=== PATIENT | male | born 1955 | race Caucasian/White ===

== ENCOUNTER 2018-09-26 13:24 | Inpatient (IN) ==
[2018-09-26] MEDS ORDERED: NS 1,000 ML IV ONE ×2 (15:24→19:08)
[2018-09-26] MEDS ORDERED: MORPHINE IV ONE (15:24)
[2018-09-26] MEDS ORDERED: BENADRYL IV ONE (15:28)
--- NOTE | 2018-09-26 16:16 | Diag Imaging Result Doc PS360 ---
EXAM: CHEST-2 VIEWS INDICATION: AMS / Cough TECHNIQUE: 2 views COMPARISON: 07/14/2016 FINDINGS: There is a catheter via granuloma at the right lung apex. The lungs are grossly clear. There is no discrete pleural fluid collection or pneumothorax. The cardiomediastinal silhouette and central vasculature are grossly unremarkable. IMPRESSION: No evidence of acute pathology by plain radiograph. Electronically signed by Elvin Li 09/26/2018 4:14 PM
--- NOTE | 2018-09-26 16:17 | Diag Imaging Result Doc PS360 ---
EXAM: KNEE 3 VIEWS RIGHT INDICATION: fall TECHNIQUE: 3 views COMPARISON: None. FINDINGS: There is no discrete fracture, dislocation, or significant intrinsic osseous lesion. There is mild medial compartment joint space narrowing. The surrounding soft tissues are essentially unremarkable. IMPRESSION: Mild medial compartment joint space narrowing. No evidence of acute osseous abnormality. Electronically signed by Elvin Li 09/26/2018 4:15 PM
--- NOTE | 2018-09-26 16:18 | Diag Imaging Result Doc PS360 ---
EXAM: RIBS ONLY RIGHT INDICATION: fall TECHNIQUE: 4 views COMPARISON: Chest radiograph dated 07/14/2016 FINDINGS: There is no discrete rib fracture or intrinsic osseous lesion. There has been prior right shoulder arthroplasty. Surrounding soft tissues are grossly unremarkable. IMPRESSION: No discrete rib fracture by plain radiograph. Electronically signed by Elvin Li 09/26/2018 4:16 PM
--- NOTE | 2018-09-26 16:19 | Diag Imaging Result Doc PS360 ---
EXAM: XRAY HIP UNILATERAL RT INDICATION: fall TECHNIQUE: 2 views COMPARISON: None. FINDINGS: There is no discrete fracture, dislocation, or significant intrinsic osseous lesion. The visualized joint spaces are essentially unremarkable. The surrounding soft tissues are essentially unremarkable. IMPRESSION: No evidence of acute osseous abnormality. Electronically signed by Elvin Li 09/26/2018 4:17 PM
[2018-09-26 17:35] LABS: BASO# 0.02 X1000 (0.0-0.2); BASO% 0.3 % (0.0-0.8); EOS# 0.28 X1000 (0.0-0.7); EOS% 4.2 % (0.0-10.0); HEMATOCRIT 38.9 % (42.0-52.0); HEMOGLOBIN 12.4 g/dL (14.0-18.0); IMM GRAN# 0.07 X1000 (0.0-0.04); IMM GRAN% 1.1 % (0.0-0.5); LYMPH# 0.99 X1000 (1.2-3.4); MCH 33.2 PG (27-31); MCHC 31.9 g/dL (33-37); MONO# 0.42 X1000 (0.11-0.59); MONO% 6.4 % (1.7-9.3); MPV 11.3 FL (7.4-10.4); NEUT# 4.81 X1000 (1.4-6.5); PLT 212 X1000 (130-400); RBC 3.74 XMIL (4.7-6.1); RDW 15.2 % (11.5-14.5); WBC 6.59 X1000 (4.8-10.8)
[2018-09-26 18:03] LABS: AGAP 9; ALB/GLOB RATIO 1.4; ALBUMIN 4.3 g/dL (3.5-5.0); ALKALINE PHOSPHATASE 59 U/L (32-122); BUN 23 mg/dL (8-22); CALCIUM 9.5 mg/dL (8.8-10.2); CHLORIDE 98 mmol/L (98-107); COSMO 274; CREATININE 0.9 mg/dL (0.7-1.2); ESTIMATED GFR > 60; GLUCOSE 105 mg/dL (70-104); GOT 54 U/L (10-34); GPT 22 U/L (10-44); POTASSIUM 4.4 mmol/L (3.5-5.1); SODIUM 135 mmol/L (136-145); TCO2 28 mmol/L (25-35); TOTAL BILIRUBIN 0.19 mg/dL (0.20-1.00); TOTAL PROTEIN 7.4 g/dL (6.3-8.3)
--- NOTE | 2018-09-26 18:04 | PROVIDER DOCUMENTATION ---
This chart was entered by Tere Simpson Scribe, acting as scribe for Leif Acevedo MD. HPI-Neurological Disorder - General Source: patient, family - History of Present Illness-Neuro Headache Location: reports: other Severity: reports: mild Onset/Duration: reports: 3 days ago Timing: reports: still present Context: reports: other (AMS) Character of Altered Mental Status: reports: disoriented, confused, trouble concentrating Any recent trauma/injury?: reports: none Character of Deficits: reports: decreased ability to walk, falling New weakness or altered sensation location:: reports: none Cognitive Baseline: alert, oriented x3 Gait Baseline: walks without assistance Associated Symptoms: reports: seizures (? per pt), trouble walking, other ( disoriented, stumbling, cough, visual hallucinations, bloody stools) Similar Symptoms Previously?: No Recently seen or treated by another doctor?: No <Leif Acevedo - Last Filed: 09/26/18 17:58> <Jensen Lazo - Last Filed: 09/26/18 20:32> - General Chief Complaint: Altered Mental Status Stated Complaint: AMS Time Seen by Provider: 09/26/18 13:44 Allergies/Adverse Reactions: Patient Allergies Allergy/AdvReac Type Severity Reaction Status Date / Time hydrocodone Allergy Unknown ITCHING Verified 09/26/18 14:35 Sulfa (Sulfonamide Allergy Unknown RASH Verified 09/26/18 14:35 Antibiotics) Home Medications: Home Medication List Medication Instructions Recorded Confirmed Last Taken Type Duloxetine [Cymbalta] 60 mg PO DAILY 02/07/18 02/07/18 09/26/18 History Gabapentin 1,200 mg PO TID 02/07/18 02/07/18 09/26/18 History Losartan [Cozaar] 50 mg PO BID 02/07/18 02/07/18 09/26/18 History Meloxicam 15 mg PO DAILY PRN PRN 02/07/18 02/07/18 09/26/18 History Nortriptyline [Pamelor] 10 mg PO HS 09/26/18 09/26/18 09/25/18 History - History of Present Illness-Neuro Nature of Presenting Problem: 63 y/o male presents to ED with AMS onset 3 days ago. Pt requests that his give the history. states he has been disoriented, had difficulty walking, stumbling, and fallen. She states he has had visual hallucinations, and described strange animals that he believed were in their house. Pt reports he has had a seizure, but states she did not witness any seizure activity. Pt reports multiple episodes of bloody stools and hx diverticulitis. Pt is alert and oriented. (Calvin,Tere F) 63 y/o male presents to ED with AMS onset 3 days ago. Pt requests that his give the history. states he has been disoriented, had difficulty walking, stumbling, and fallen. She states he has had visual hallucinations, and described strange animals that he believed were in their house. Pt reports he has had a seizure, but states she did not witness any seizure activity. Pt reports multiple episodes of bloody stools and hx diverticulitis. Pt is alert and oriented. (Leif Acevedo) Review of Systems - Adult - REVIEW OF SYSTEMS - ADULT Constitutional: reports: other (disoriented). denies: chills, fever Eyes: reports: no symptoms reported Ears, Nose, Mouth & Throat: reports: no symptoms reported Cardiovascular: denies: chest pain, palpitations Respiratory: reports: cough. denies: shortness of breath Gastrointestinal: reports: other (bloody stools). denies: abdominal pain, diarrhea, nausea, vomiting Genitourinary: reports: no symptoms reported Musculoskeletal: denies: back pain, joint pain Integumentary: reports: no symptoms reported Neurological: reports: seizure (? per pt), other (disoriented, difficulty walking, stumbling). denies: dizziness/vertigo Psychiatric: reports: other (visual hallucinations). denies: suicidal thoughts Endocrine: reports: no symptoms reported Hematologic/Lymphatic: reports: no symptoms reported Allergic/Immunologic: reports: no symptoms reported All Other Systems: Reviewed and Negative <Leif Acevedo - Last Filed: 09/26/18 17:58> Past History - Adult - PAST MEDICAL HISTORY-ADULT Review of Records: reports: Old Records Reviewed, Nursing Assessment Review, Medications Reviewed Major Childhood Illnesses: reports: denies history Cardiovascular: reports: denies history Respiratory: reports: denies history Gastrointestinal: reports: diverticulosis, GERD Obstetrical/Gynecological: reports: denies history Genitourinary: reports: denies history Musculoskeletal: reports: denies history, chronic pain (neck and back ) Neurological: reports: Seizures/Epilepsy Endocrine/Immune: reports: denies history Other Conditions: reports: denies history, cataract/glaucoma - PRIOR SURGERIES/PROCEDURES Surgical/Procedure History: reports: hernia repair, orthopedic (extremity) ( total knee and L arm; shoulder), joint replacement (shoulder; knee), back/neck ( neck), other (cataract removal, deviated septum) - IMMUNIZATION STATUS Childhood Immunizations: See Nurse Assessment Flu Vaccine: See Nurse Assessment - FAMILY HISTORY Family History: reviewed, not pertinent - SOCIAL HISTORY Smoking: non-smoker Substance Use: none/never Alcohol Use Frequency: never Living Situation: family <Leif Acevedo - Last Filed: 09/26/18 17:58> Physical Exam- Neurological - Physical Exam-Neuro Initial Vital Signs Reviewed: Yes General Appearance: appears well, alert, no apparent distress Eye Exam: bilateral eye: normal inspection, PERRL, EOMI HENMT: normocephalic/atraumatic, moist mucous membranes, normal ENT inspection Head Injury: no evidence of injury Neck: non-tender, full range of motion Respiratory: lungs clear, normal breath sounds, other (ecchymosis to R chest wall/rib cage; tender R chest wall/rib cage) Cardiovascular: normal peripheral pulses, regular rate, rhythm Abdominal Exam: normal bowel sounds, soft, guarding (involuntary; RLQ), tenderness (RLQ) Extremity: normal range of motion, normal gait, tenderness (R medial knee; R hip ) research quality assurance specialist Exam: normal hearing, PERRL, abnormal speech (slurred) Coordination/Gait: normal finger to nose, abnormal gait Motor/Sensory: no motor deficit, no sensory deficit, no pronator drift Neurologic: research quality assurance specialist II-XII nml as tested, grossly normal, no motor/sensory deficits Integumentary: normal color, warm/dry Psych/Mental Status: normal mood/affect, normal thought content, normal thought process <Leif Acevedo - Last Filed: 09/26/18 17:58> Progress - PLAN OF CARE/RESULTS Result Diagrams: 09/26/18 14:10 - EKG 1 Time of EKG reading by physician:: 15:35 EKG Read and Signed by:: Leif Acevedo EKG Interpretation (*Must complete 3 of following elements*): Normal Rate: 93 Rhythm: NSR [place]: normal QRS: normal CT Interval: normal ST Wave: normal - XRAY 1 XRAY Study: Ribs Impression: Normal (FINDINGS: There is no discrete rib fracture or intrinsic osseous lesion. There has been prior right shoulder arthroplasty. Surrounding soft tissues are grossly unremarkable. IMPRESSION: No discrete rib fracture by plain radiograph. Electronically signed by Elvin Li 09/26/2018 4:16 PM) 2 XRAY: Right XRAY Study: Knee Impression: Abnormal (FINDINGS: There is no discrete fracture, dislocation, or significant intrinsic osseous lesion. There is mild medial compartment joint space narrowing. The surrounding soft tissues are essentially unremarkable. IMPRESSION: Mild medial compartment joint space narrowing. No evidence of acute osseous abnormality. Electronically signed by Elvin Li 09/26/2018 4: 15 PM) 3 XRAY: Right XRAY Study: Hip Impression: Normal (FINDINGS: There is no discrete fracture, dislocation, or significant intrinsic osseous lesion. The visualized joint spaces are essentially unremarkable. The surrounding soft tissues are essentially unremarkable. IMPRESSION: No evidence of acute osseous abnormality. Electronically signed by Elvin Li 09/26/2018 4:17 PM) 4 XRAY Study: Chest Impression: Normal (FINDINGS: There is a catheter via granuloma at the right lung apex. The lungs are grossly clear. There is no discrete pleural fluid collection or pneumothorax. The cardiomediastinal silhouette and central vasculature are grossly unremarkable. IMPRESSION: No evidence of acute pathology by plain radiograph. Electronically signed by Elvin Li 2018 4:14 PM) - CHANGE OF SHIFT REPORT (ED Provider) Report Given and Care Transferred to:: marbella moore Time of Transfer: 17:59 Items Pending: Labs <Leif Acevedo - Last Filed: 09/26/18 17:58> - PLAN OF CARE/RESULTS Result Diagrams: 09/26/18 14:10 09/26/18 14:10 - REASSESSMENT Reassessment #1 Time Reassessed: 18:18 Status: unchanged (Patient reprot FBPR for 1 week. get dizzy and fell down. report confusion at home but here he is A and Ox3. RLQ tenderness, no rebound or Guarding. will call GI.) - CONSULTS/PCP/HOSPITALIST Notification #1 *Consult/PCP/Hospitalist*: Dr. Evangelista Time Discussed: 19:05 Consult Disposition: Admit (Type and screen, fluid , NPO and admit.) #2 Consult: Dr. Alex Haro Consult Disposition: Admit (Accepted. Hx , PE and Dx , GI recommendation discussed.) <Al-Jensen Moore - Last Filed: 09/26/18 20:32> - PLAN OF CARE/RESULTS Progress/Plan/Lab Results: Vital Signs - 8 hr 09/26/18 13:45 Temperature 98.2 F Pulse Rate 96 H Respiratory Rate 20 Blood Pressure 135/101 O2 Sat by Pulse Oximetry 96 Laboratory Results - last 24 hr 09/26/18 09/26/18 09/26/18 14:10 14:10 17:25 WBC 6.59 RBC 3.74 L Hgb 12.4 L Hct 38.9 L MCV 104.0 H MCH 33.2 H MCHC 31.9 L RDW Std Deviation 15.2 H Plt Count 212 MPV 11.3 H Immature Gran % (Auto) 1.1 H Neut % (Auto) 73.0 Lymph % (Auto) 15.0 L [place] % (Auto) 6.4 Eos % (Auto) 4.2 Baso % (Auto) 0.3 Immature Gran # (Auto) 0.07 H Neut # (Auto) 4.81 Lymph # (Auto) 0.99 L [place] # (Auto) 0.42 Eos # (Auto) 0.28 Baso # (Auto) 0.02 Sodium 135 L Potassium 4.4 Chloride 98 Carbon Dioxide 28 Anion Gap 9 BUN 23 H Creatinine 0.9 Estimated GFR/1.73 m2 > 60 BUN/Creatinine Ratio 26 Glucose 105 H POC Glucose 93 Calculated Osmolality 274 Calcium 9.5 Total Bilirubin 0.19 L AST 54 H ALT 22 Alkaline Phosphatase 59 Total Protein 7.4 Albumin 4.3 Globulin 3.1 Albumin/Globulin Ratio 1.4 Urine Source Urine Color Urine Turbidity Urine pH Ur Specific [place] Urine Protein Ur Glucose (Stick) Ur Ketones (Stick) Urine Blood Urine Nitrite Urine Bilirubin Urobilinogen Dipstick Urine Leukocytes Urine WBC (Auto) Urine RBC (Auto) U Epithel Cells (Auto) Urine Bacteria (Auto) 09/26/18 18:50 WBC RBC Hgb Hct MCV MCH MCHC RDW Std Deviation Plt Count MPV Immature Gran % (Auto) Neut % (Auto) Lymph % (Auto) [place] % (Auto) Eos % (Auto) Baso % (Auto) Immature Gran # (Auto) Neut # (Auto) Lymph # (Auto) [place] # (Auto) Eos # (Auto) Baso # (Auto) Sodium Potassium Chloride Carbon Dioxide Anion Gap BUN Creatinine Estimated GFR/1.73 m2 BUN/Creatinine Ratio Glucose POC Glucose Calculated Osmolality Calcium Total Bilirubin AST ALT Alkaline Phosphatase Total Protein Albumin Globulin Albumin/Globulin Ratio Urine Source CLEAN CATCH Urine Color STRAW Urine Turbidity CLEAR Urine pH 7.5 Ur Specific [place] 1.000 Urine Protein NEGATIVE Ur Glucose (Stick) NEGATIVE Ur Ketones (Stick) NEGATIVE Urine Blood NEGATIVE Urine Nitrite NEGATIVE Urine Bilirubin NEGATIVE Urobilinogen Dipstick NORMAL Urine Leukocytes NEGATIVE Urine WBC (Auto) <10 Urine RBC (Auto) <10 U Epithel Cells (Auto) <10 Urine Bacteria (Auto) NEGATIVE Orders Category Date Time Status Saline Loc NOW Care 09/26/18 15:24 Active CHEST-2 VIEWS [RAD] Stat Exams 09/26/18 15:[address] ABD/PELVIS W/IV CONT ONLY [CT] Stat Exams 09/26/18 15:[address] HEAD W/O CONTRAST [CT] Stat Exams 09/26/18 15:24 Completed KNEE 3 VIEWS RIGHT [RAD] Stat Exams 09/26/18 15:24 Completed RIBS ONLY RIGHT [RAD] Stat Exams 09/26/18 15:24 Completed XRAY HIP UNILATERAL RT [RAD] Stat Exams 09/26/18 15:24 Completed CBC WITH ELECTRONIC DIFF [HEME] Stat Lab 09/26/18 14:10 Completed COMPREHENSIVE METABOLIC PANEL [CHEM] Stat Lab 09/26/18 14:10 Completed OCCULT BLOOD DIAGNOSTIC [STOOL] Stat Lab 09/26/18 15:24 Uncollected TYPE & SCREEN [BBK] Stat Lab 09/26/18 19:08 Uncollected UA [URINALYSIS W/POSS RFLX CULT] [URINALYSIS] Stat Lab 09/26/18 18:50 Completed 0.9% Sodium Chloride Inj [Ns] 1,000 ml Med 09/26/18 19:15 Active IV 300 mls/hr 0.9% Sodium Chloride Inj [Ns] 1,000 ml Med 09/26/18 15:24 Discontinued IV 999 mls/hr 0.9% Sodium Chloride Inj [Ns] 1,000 ml Med 09/26/18 19:08 Discontinued IV 999 mls/hr Diphenhydramine [Benadryl] Med 09/26/18 15:28 Discontinued 25 mg IV NOW ONE Morphine Med 09/26/18 15:24 Discontinued 4 mg IV NOW ONE Pantoprazole [Protonix] Med 09/26/18 19:08 Discontinued 40 mg IV NOW ONE Pantoprazole [Protonix] Med 09/26/18 19:30 Discontinued 40 mg IV NOW ONE Sodium Chloride 0.9% Med 09/26/18 19:08 Discontinued 10 ml INJ NOW ONE Sodium Chloride 0.9% Med 09/26/18 19:30 Discontinued 10 ml INJ NOW ONE EKG [EKG] Stat Ther 09/26/18 15:24 Ordered Departure <Leif Acevedo - Last Filed: 09/26/18 17:58> - Departure Date of Disposition Decision: 09/26/18 Time of Disposition Decision: 19:28 Certified Medical Emergency: Emergent - Critical Care Note This patient required my direct & personal management of CC.: No <Jensen Lazo - Last Filed: 09/26/18 20:32> - Departure DIAGNOSIS: Bright red blood per rectum, Confusion Disposition: ADMITTED INPATIENT 09 Condition: Serious Referrals and Follow-Ups: Donald Wiggins MD [Primary Care Provider] - Attestation - Physician/ ROSSY Attestation Patient care was provided by Advanced Practice Provider:: No The physician spent face to face time with patient:: Yes Advanced Practice Provider documentation review:: Supervising physician onsite and consulted in the evaluation and care of this patient. The physician did have a face to face encounter with the patient. <Leif Acevedo - Last Filed: 09/26/18 17:58> - NIH Stroke Scale NIH Type: Initial Evaluation Level of Consciousness: 0-Alert LOC Questions (ask month and age): 0-Answers Both Correctly LOC Commands (ask to open & close eyes;make a fist, let go): 0-Obeys Both Correctly Best Gaze (horizontal eye movement): 0-Normal Visual (use finger movement, counting or visual threat): 0-No Visual Loss Facial Palsy (show teeth or raise eyebrows & close eyes tght: 0-Symmetrical Movement Motor Function-left arm: 0-Normal Motor Function-right arm: 0-Normal Motor Function-left le-Normal Motor Function-right le-Normal Limb Ataxia(efyilr-xown-ryccdg, or heel to patel): 0-No Ataxia Sensory(pin prick to face,arms,trunk,legs-compare side/side): 0-No Ataxia Best Language(name item/read sentence.Ex-Down to Earth): 0-No Aphasia Dysarthria(Pt read words or say words Ex.Mama,Tip-Top,Thanks: 1-Mild-Mod Slurring Words Extinction and Inattention: 0-Normal NIH Total Score: 1 Modified [place] Score Criteria: 1-no significant disability despite symptoms <Leif Acevedo - Last Filed: 09/26/18 17:58> Stroke tPA Guidelines - Inclusion Criteria for IV tPA 18 years old or older: Yes Ischemic stroke with measurable deficit: No Onset <3 hours ago *OR* 3-4.5 hours ago: No - Exclusion Criteria for IV tPA Evidence of intracranial hemorrhage on CT: No Presentation suggest SAH: No CT reveals defined area of hypodensity: No Evidence of AVM, neoplasm, aneurysm: No Seizure at stroke onset: No Active internal bleeding or acute trauma: No Platelet Count Less Than 100,000: No Heparin Within Last 48 HRS (PTT >Lab normal limits): No INR > 1.7 (warfarin use): No Use IIB/IIIA inhibitors within 24 hours: No Serious Head Trauma Within Last 3 Months: No Arterial Puncture Within Last 7 Days: No Lumbar Puncture Within Last 7 Days: No Repeated systolic Blood Pressure >185 or Diastolic >110: No - Additional Exclusion Criteria for IV tPA Currently on Coumadin: No Patient older than 80: No Prior stroke and diabetes: No Baseline NIHSS score > 25: No - Relative Contraindications to IV tPA CT reveals extensive area of infarct (>1/3 MCA territory): No Minor or rapidly improving stroke symptoms: Yes Major Surgery or Serious Trauma In Previous 14 Days: No AMI within 3 months: No Gastrointestinal or Urinary Tract hemorrhage in Past 21 Days: No Post - AMI pericarditis: No Blood Glucose Less Than 50 mg/dl or Greater Than 400 mg/dl: No - Consultation Reason not a candidate:: NIH score of 1; symptom onset 3 days ago. <Leif Acevedo - Last Filed: 09/26/18 17:58> This chart was documented by the indicated scribe, (Tere Simpson, Myraibyogesh) and accurately reflects the services I performed and decisions made by , Leif Acevedo MD, as attested by the provider's signature.
--- NOTE | 2018-09-26 18:50 | Diag Imaging Result Doc PS360 ---
EXAM: CT ABD/PELVIS W/IV CONT ONLY INDICATION: RLQ abdominal pain, Hx of diverticulitis blood sto TECHNIQUE: This exam was performed using automated exposure control, adjustment of mA or kV according to patient size, and/or use of iterative reconstruction technique. COMPARISON: None. FINDINGS: There is a 7 mm noncalcified nodule at the left lung base, nonspecific but statistically most likely a granuloma. There are multiple calcified granulomata in the spleen. There is a miniscule hypodense focus in the inferior right hepatic lobe that probably represents a tiny cyst. The liver is unremarkable, otherwise. The gallbladder, pancreas, and adrenal glands are unremarkable. There are a few tiny renal cysts bilaterally. There is slightly heterogeneous enhancement at the superior aspects of both kidneys, mainly on the left. It is nonspecific. It can be associated with pyelonephritis. Please correlate clinically. No discrete renal mass is identified. The urinary bladder is unremarkable. There is severe diverticulosis coli that predominantly involves the sigmoid colon and descending colon. There is no evidence of diverticulitis. The appendix is normal. There is a moderate-sized hiatal hernia. The remainder of the GI tract is essentially unremarkable. There is no free abdominal gas or free fluid identified. IMPRESSION: 1.Subtle heterogeneous enhancement at the superior aspects of both kidneys. Although nonspecific, this can be associated with mild pyelonephritis. Please correlate clinically. 2.Advanced diverticulosis coli with no evidence of diverticulitis. 3.Other external/nonacute findings detailed above. Electronically signed by Elvin Li 09/26/2018 6:47 PM
--- NOTE | 2018-09-26 18:51 | Diag Imaging Result Doc PS360 ---
EXAM: CT HEAD W/O CONTRAST INDICATION: ams TECHNIQUE: This exam was performed using automated exposure control, adjustment of mA or kV according to patient size, and/or use of iterative reconstruction technique. COMPARISON: 09/13/2015 FINDINGS: There is no definite acute infarct given the limited sensitivity of CT versus MRI. There is no discrete intracranial mass, mass effect, or intracranial hemorrhage. There is mild ethmoid and right maxillary sinus mucosal disease. Surrounding soft tissues and bony structures are essentially unremarkable, otherwise. IMPRESSION: No evidence of acute intracranial pathology. Electronically signed by Elvin Li 09/26/2018 6:48 PM
[2018-09-26] MEDS ORDERED: PROTONIX IV ONE ×2 (19:08→19:30)
[2018-09-26] MEDS ORDERED: SODIUM CHLORIDE 0.9% INJ ONE ×2 (19:08→19:30)
[2018-09-26] MEDS ORDERED: NS 1,000 ML IV SCH (19:15)
[2018-09-26 19:17] LABS: URINE SOURCE CLEAN CATCH
[2018-09-26 19:28] LABS: BILIRUBIN URINE NEGATIVE (NEGATIVE); BLOOD URINE NEGATIVE (NEGATIVE); COLOR STRAW; GLUCOSE URINE NEGATIVE (NEGATIVE); KETONE URINE NEGATIVE (NEGATIVE); LEUKOCYTES URINE NEGATIVE (NEGATIVE); NITRITE URINE NEGATIVE (NEGATIVE); PH URINE 7.5; PROTEIN URINE NEGATIVE (NEGATIVE); TURBIDITY URINE CLEAR (CLEAR); UROBILINOGEN URINE NORMAL (NORMAL)
[2018-09-26 19:29] LABS: UR EPITHELIAL CELLS <10 /HPF (<10); URINE BACTERIA NEGATIVE /HPF; URINE RBC <10 /HPF (<10); URINE WBC <10 /HPF (<10)
[2018-09-26] MEDS: MORPHINE IV PRN (23:40)
[2018-09-26] MEDS: ZOFRAN IV PRN (23:41)
--- NOTE | 2018-09-27 00:24 | HISTORY AND PHYSICAL ---
CHIEF COMPLAINT: Falls. HISTORY OF PRESENT ILLNESS: This is a 63-year-old male who sees Dr. Chip Wiggins as an outpatient. Apparently he had had some stumbling and falls over the past couple of days. The ER stated that he had had visual hallucinations, seeing strange animals in the house. The patient did not make any mention of this to me. He has a history of hypertension, epilepsy and chronic pain as well as diverticulosis and GERD. He reportedly had bleeding in his stool that was bright red and which started I guess Thursday of last week. He stated that he had been on a diet with his , eating a lot of fresh, raw vegetables. He felt as if it had to do with his history of diverticulosis. He said there was a small amount of bright red blood in each one of the stools that stopped around 2 days ago. The fall happened on Thursday. He stated that he did not lose consciousness. He did not hit his head. He does have ecchymosis with small abrasions to his right ribs. He has complaint of right rib pain, right hip pain and low back pain. He states that he has a history of sciatica and has taken multiple epidural blocks. At this time the patient is alert and oriented x 3. His main complaint is pain from the falls. He denies having any seizure activity. GI was consulted by the ER physician. They stated they would see him inpatient. He will be admitted and held NPO for possible colonoscopy tomorrow. PAST MEDICAL HISTORY: See HPI. PREVIOUS SURGICAL HISTORY: Hernia repair, total knee and left shoulder repair, cataract removal, deviated septum surgery, vagal nerve stimulator. FAMILY HISTORY: Positive for hypertension and coronary artery disease in both parents. SOCIAL HISTORY: He is a nonsmoker. He uses chewing tobacco. He was an alcoholic but has been sober for almost 15 years. He lives with his . No illicit drug use. ALLERGIES: [place] and sulfa antibiotics. HOME MEDICATIONS: A list of home medications has not been reconciled. Order was placed for nursing to reconcile home medications in the computer. These can be restarted when appropriate by his primary care provider, Dr. Chip Wiggins. REVIEW OF SYSTEMS: A 14-point review of systems was conducted with the patient. Pertinent positives listed above in the HPI. All other systems reviewed and negative. PHYSICAL EXAMINATION: VITAL SIGNS: Temperature 98.2 degrees, pulse 96, respirations 20, blood pressure 135/80, oxygen saturation 96% on room air. GENERAL: A pleasant, 63-year-old male lying on the ER stretcher. Answers all questions appropriately. He is alert and oriented x 3, in no acute distress. HEENT: Head is atraumatic, normocephalic. Pupils equal, round and reactive to light. Extraocular eye movements intact. Sclerae are nonicteric. Conjunctivae are pink. Oral mucosa is moist. NECK: Supple. No JVD, no thyromegaly. Trachea is midline. No cervical lymphadenopathy. CARDIAC: S1, S2 appreciated. No murmurs, rubs or gallops. LUNGS: Clear to auscultation bilaterally. No rales, rhonchi or wheezes. Symmetrical rise and fall respirations. ABDOMEN: Soft, nontender, nondistended. Bowel sounds present in all 4 quadrants. Normoactive. No pulsatile mass. No organomegaly. EXTREMITIES: No clubbing, cyanosis or edema. 2+ pedal pulses bilaterally. Tenderness to right hip. SKIN: Warm, dry. Ecchymosis noted to right rib cage as well as a small area of ecchymosis to right hip. NEUROLOGICAL: Alert and oriented x 3. Cranial nerves II-XII appear to be grossly intact. DIAGNOSTIC DATA: Multiple x-rays of the ribs, right knee, right hip and chest were all within normal limits. EKG showed normal sinus rhythm with a rate of 93. CT of the abdomen and pelvis showed advanced diverticulosis with no evidence of diverticulitis. LABORATORY DATA: WBC 6.59, hemoglobin 12.4, hematocrit 38.9, platelet count 212. Sodium 135, potassium 4.4, chloride 98, carbon dioxide 28, BUN 23, creatinine 0.9, glucose 105. Urine unremarkable. ASSESSMENT AND PLAN: 1. Lower GI bleed. This is likely a diverticular bleed. Consult Dr. Evangelista. Give Protonix 40 mg IV q. 12 hours. NPO after midnight. Normal saline at 100 mL an hour. 2. Acute blood loss anemia secondary to #1. Trend hemoglobin and hematocrit q. 6 hours. Type and screen has been obtained. 3. Fluid volume depletion. Two boluses were given in the Emergency Room. We will continue normal saline at 100 mL an hour. 4. Frequent falls. The patient has complaint of pain. However, he does have chronic pain. We will have morphine 2 mg IV q. 3 hours. Defer additional treatment to Dr. Chip Wiggins, his primary care provider. 5. Epilepsy. We will continue home medications when they have been reconciled. Order was placed for nursing to reconcile home medications. Defer further treatment to primary team. Further recommendations depending on patient's clinical course. Dictated by SOLITARIO Montanez for Alex Haro MD I have performed a face to face diagnostic evaluation. Labs and Xrays reviewed. Exam- chest -clear A/P- GI Bleed- Admit, NPO, GI consult. Dr. Haro cc: SOLITARIO Montanez MD P. Jagan Reddy, MD [facility]
[2018-09-27] MEDS: NS 1,000 ML IV SCH ×3 (00:45→20:37)
[2018-09-27 01:03] LABS: BASO# 0.02 X1000 (0.0-0.2); BASO% 0.3 % (0.0-0.8); EOS# 0.32 X1000 (0.0-0.7); EOS% 5.2 % (0.0-10.0); HEMATOCRIT 34.6 % (42.0-52.0); HEMOGLOBIN 10.8 g/dL (14.0-18.0); IMM GRAN# 0.06 X1000 (0.0-0.04); LYMPH# 1.33 X1000 (1.2-3.4); LYMPH% 21.7 % (20.5-51.1); MCH 32.6 PG (27-31); MCHC 31.2 g/dL (33-37); MCV 104.5 FL (81-99); MONO# 0.37 X1000 (0.11-0.59); MPV 10.2 FL (7.4-10.4); NEUT# 4.03 X1000 (1.4-6.5); NEUT% 65.8 % (42.2-75.2); PLT 180 X1000 (130-400); RBC 3.31 XMIL (4.7-6.1); RDW 15.1 % (11.5-14.5); WBC 6.13 X1000 (4.8-10.8)
[2018-09-27] MEDS: MORPHINE IV PRN ×4 (06:50→23:50)
[2018-09-27] MEDS: ZOFRAN IV PRN (06:50)
[2018-09-27 06:52] LABS: BASO# 0.02 X1000 (0.0-0.2); BASO% 0.3 % (0.0-0.8); EOS# 0.35 X1000 (0.0-0.7); HEMATOCRIT 35.5 % (42.0-52.0); HEMOGLOBIN 11.1 g/dL (14.0-18.0); IMM GRAN# 0.06 X1000 (0.0-0.04); LYMPH% 22.2 % (20.5-51.1); MCH 32.7 PG (27-31); MCHC 31.3 g/dL (33-37); MCV 104.7 FL (81-99); MONO# 0.46 X1000 (0.11-0.59); MONO% 7.8 % (1.7-9.3); MPV 10.7 FL (7.4-10.4); NEUT# 3.67 X1000 (1.4-6.5); NEUT% 62.7 % (42.2-75.2); PLT 184 X1000 (130-400); RBC 3.39 XMIL (4.7-6.1); WBC 5.86 X1000 (4.8-10.8)
[2018-09-27 06:56] LABS: INR 0.94; PROTIME 13.3 Seconds (11.0-16.0)
--- NOTE | 2018-09-27 07:17 | EKG Report ---
Test Performed on : 09/26/2018 2:37:43 PM Test Reason : ams Blood Pressure : / mmHG Vent. Rate : 093 BPM Atrial Rate : 093 BPM P-R Int : 156 ms QRS Dur : 082 ms QT Int : 338 ms P-R-T Axes : 059 -07 026 degrees QTc Int : 420 ms Normal sinus rhythm. Normal ECG When compared with ECG of 07-FEB-2018 19:35, No significant change was found Unconfirmed Result
[2018-09-27 07:44] LABS: AGAP 13; BUN 13 mg/dL (8-22); CALCIUM 8.6 mg/dL (8.8-10.2); CHLORIDE 104 mmol/L (98-107); COSMO 282; CREATININE 0.7 mg/dL (0.7-1.2); ESTIMATED GFR > 60; GLUCOSE 82 mg/dL (70-104); POTASSIUM 4.3 mmol/L (3.5-5.1); SODIUM 142 mmol/L (136-145); TCO2 25 mmol/L (25-35)
[2018-09-27] MEDS: SODIUM CHLORIDE 0.9% INJ SCH (08:17)
[2018-09-27] MEDS: PROTONIX IV SCH ×2 (08:17→20:37)
--- NOTE | 2018-09-27 10:31 | GASTROENTEROLOGY CONSULTATION ---
DATE: 09/27/2018 REQUESTING PHYSICIAN: Dr. Wiggins. PRIMARY CARE PHYSICIAN: Dr. Wiggins. REASON FOR CONSULTATION: Rectal bleeding. HISTORY OF PRESENT ILLNESS: Mr. Dial is a 63-year-old male who was admitted on 09/26/2018 for recurrent falls over the last couple of days. According to the patient, he has been experiencing some visual hallucinations. The patient has a history of epilepsy, chronic pain, hypertension, diverticulosis, and GERD. According to the patient, he started noticing bright red blood in the stools one week ago. His last colonoscopy was done more than 10 years ago. He does not recall the results of the procedure. He describes the stool as bright red. He was noted to be mildly anemic on lab work. Since being in the hospital, he has not had any documented blood in the stools. Gastroenterology is consulted for further management. PAST MEDICAL HISTORY: Reflux disease, diverticulosis, chronic pain, epilepsy, hypertension, sciatica. PAST SURGICAL HISTORY: Hernia repair, total knee replacement, left shoulder repair, cataract removal, deviated septal surgery, vagal nerve stimulator. FAMILY HISTORY: Significant for hypertension, coronary artery disease. SOCIAL HISTORY: He is a nonsmoker. He chews tobacco. He was an alcoholic, but has been sober for the last 15 years. He lives with his . No history of illicit drug abuse. ALLERGIES: [place] and sulfa antibiotics. MEDICATIONS IN HOSPITAL: Include: 1. Morphine. 2. Normal saline. 3. Zofran. 4. Protonix. He is currently n.p.o. REVIEW OF SYSTEMS: Denies any current fevers, rigors or chills, chest pain, or shortness of breath. He does complain of feeling tired and also complains of having recurrent falls in the past few days. He has been having intermittent blood in the stools over the last 1 week. He has history of reflux and diverticulosis. Denies any vomiting blood. He does have a history of chronic pain and arthritis. He denies any neurologic complaints. He does take NSAIDs in the form of Mobic at home. PHYSICAL EXAMINATION: Vital Signs: Temperature of 97.9 degrees, pulse rate of 95, respiratory rate 18, blood pressure 144/99, saturating 92% on room air. Body weight of 204 pounds and 14.4 ounces. BMI of 28 kg/m2. General: Moderately nourished, lying in bed in no acute distress. HEENT: Mild pallor. No icterus. Pupils equal, reactive to light. Neck: Supple. Abdomen: Soft, nontender, nondistended. No guarding or rebound. Extremities: No cyanosis, clubbing. Neurologic: Alert, awake, oriented x3. LABORATORY DATA: Hemoglobin and hematocrit 11.1 and 35.5, white count of 5.86, platelet count of 184,000. INR 0.94, PTT of 13.3, PTT of 35. Sodium 140, potassium 4.2, chloride 104, bicarb 24, anion gap 13, BUN of 15, creatinine 0.7, glucose of 82, calcium is 8.6. Total bilirubin is 0.19, AST 54, ALT 22, alkaline phosphatase 59, total protein is 7.4, albumin of 4.3. TSH 2.56. IMAGING: He had abdominopelvic CT scan done, which showed: 1. Subtle heterogeneous enhancement at the superior aspect of both kidneys, nonspecific. 2. Advanced diverticulosis coli with no evidence of diverticulitis. 3. Moderate-sized hiatal hernia. IMPRESSION AND PLAN: 1. Gastrointestinal bleed. Unclear if it is diverticular as the patient has severe diverticulosis on CT scan. 2. Diverticulosis coli. 3. Hiatal hernia. 4. Reflux. 5. History of use of nonsteroidal anti-inflammatory drugs. RECOMMENDATIONS: Will keep the patient on Protonix twice daily. We will start on clear liquid diet. Will schedule him for EGD and colonoscopy tomorrow by Dr. Banks. The risks, benefits, indications, and alternatives were discussed with the patient, and all questions were answered. If the patient has decreasing hematocrit, he may need blood transfusion. Would recommend the patient to quit chewing tobacco and avoid any NSAIDs. He needs to follow gastroesophageal reflux lifestyle changes. Further recommendations to follow pending hospital course. The above plans were discussed with the patient, and all questions were answered. Please call if any questions. cc: MD Ej Hilliard MD
[2018-09-27 11:59] LABS: BASO# 0.03 X1000 (0.0-0.2); BASO% 0.5 % (0.0-0.8); EOS# 0.21 X1000 (0.0-0.7); EOS% 3.2 % (0.0-10.0); HEMATOCRIT 35.7 % (42.0-52.0); HEMOGLOBIN 11.3 g/dL (14.0-18.0); IMM GRAN# 0.07 X1000 (0.0-0.04); IMM GRAN% 1.1 % (0.0-0.5); LYMPH# 0.88 X1000 (1.2-3.4); LYMPH% 13.4 % (20.5-51.1); MCH 32.9 PG (27-31); MCHC 31.7 g/dL (33-37); MCV 104.1 FL (81-99); MONO# 0.36 X1000 (0.11-0.59); MONO% 5.5 % (1.7-9.3); MPV 10.5 FL (7.4-10.4); NEUT# 5.01 X1000 (1.4-6.5); NEUT% 76.3 % (42.2-75.2); PLT 175 X1000 (130-400); RBC 3.43 XMIL (4.7-6.1); RDW 14.8 % (11.5-14.5); WBC 6.56 X1000 (4.8-10.8)
[2018-09-27] MEDS ORDERED: GOLYTELY PO ONE (14:00)
[2018-09-27 17:10] LABS: BASO# 0.03 X1000 (0.0-0.2); BASO% 0.4 % (0.0-0.8); EOS# 0.09 X1000 (0.0-0.7); EOS% 1.1 % (0.0-10.0); HEMATOCRIT 37.9 % (42.0-52.0); HEMOGLOBIN 12.1 g/dL (14.0-18.0); IMM GRAN# 0.15 X1000 (0.0-0.04); IMM GRAN% 1.8 % (0.0-0.5); LYMPH# 1.07 X1000 (1.2-3.4); LYMPH% 13.1 % (20.5-51.1); MCH 32.9 PG (27-31); MCHC 31.9 g/dL (33-37); MONO# 0.43 X1000 (0.11-0.59); MONO% 5.3 % (1.7-9.3); MPV 10.5 FL (7.4-10.4); NEUT# 6.37 X1000 (1.4-6.5); NEUT% 78.3 % (42.2-75.2); PLT 198 X1000 (130-400); RBC 3.68 XMIL (4.7-6.1); RDW 14.6 % (11.5-14.5); WBC 8.14 X1000 (4.8-10.8)
--- NOTE | 2018-09-27 18:57 | PROGRESS NOTE ---
DATE: 09/27/2018 63-year-old white gentleman admitted to the hospital with altered mental status, falling, bleeding per rectum. Appreciate Dr. Evangelista's consult. PAST MEDICAL HISTORY: Reviewed. PAST SURGICAL HISTORY: Reviewed. MEDICINES: Reviewed. ALLERGIES: Hydrocodone and sulfa. EXAMINATION: Temperature 97 degrees, pulse is 92, blood pressure slightly high .HEENT: Within normal limits. Neck: Supple. Chest: Bilateral air entry. Heart: Sounds are regular. Bruising noted on the right side of the chest. Belly: Soft, nontender. Rectal: Did not do. Extremities: No peripheral edema on thrombotic stockings and left wrist is deformed from the previous injuries. LABS: CBC. White cell count 8.1, hematocrit 37.9, platelets 198,000. PT/INR is normal. PTT 35. SMA 7 is normal. TSH 2.56. Urinalysis is clear. EKG normal sinus, nothing acute. Right rib x- rays no acute bony injury. X-ray of right knee. No evidence of osseous abnormality noted. X-ray of right hip. No acute bony injury identified. CT head no evidence of acute intracranial pathology. Chest x-ray negative except calcified granuloma in the right lung apex. CT scan of the abdomen and pelvis diverticulosis. ASSESSMENT AND PLAN: 1. Altered mental status due to metabolic encephalopathy. Will get the urine toxic screen. 2. Recurrent falls. No acute bony injury noted on the right side of the chest. 3. Lower gastrointestinal bleeding. Set up a colonoscopy by Dr. Banks. Patient has a chronic pain taking duloxetine and gabapentin. 4. Hypertension on losartan on hold and depression on nortriptyline. All the workup was essentially unremarkable. Appreciated GI consult. Will follow up. LEVEL OF DOCUMENTATION: 35 minutes. cc: Ej Wiggins MD
[2018-09-28 00:24] LABS: UR AMPHETAMINES QUAL NONE DETECTED (NONE DETECT); UR BARBITUATES QUAL NONE DETECTED (NONE DETECT); UR BENZODIAZEPIN QUAL NONE DETECTED (NONE DETECT); UR CANNABINOIDS QUAL NONE DETECTED (NONE DETECT); UR COCAINE QUAL NONE DETECTED (NONE DETECT); UR METHADONE QUAL NONE DETECTED (NONE DETECT); UR OPIATES QUAL PRESUMPTIVE POSITIVE (NONE DETECT); UR OXYCODONE QUAL NONE DETECTED (NONE DETECT); UR PCP QUAL NONE DETECTED (NONE DETECT)
[2018-09-28] MEDS: MORPHINE IV PRN ×3 (03:16→21:53)
[2018-09-28] MEDS: SODIUM CHLORIDE 0.9% INJ SCH (08:23)
[2018-09-28] MEDS: PROTONIX IV SCH ×2 (08:23→21:51)
[2018-09-28] MEDS ORDERED: PNEUMOVAX 23 IM ONE (09:00)
[2018-09-28] MEDS: NS 1,000 ML IV SCH ×2 (10:33→18:39)
[2018-09-28] MEDS ORDERED: DIPRIVAN 1% ONE ×2 (11:58→12:22)
[2018-09-28] MEDS ORDERED: XYLOCAINE-MPF 2% ONE (11:58)
[2018-09-28] MEDS ORDERED: FENTANYL ONE (11:59)
--- NOTE | 2018-09-28 12:55 | GASTROENTEROLOGY PROGRESS NOTE ---
DATE: 09/28/2018 SUBJECTIVE: No acute overnight events. Afebrile. The patient denies nausea, vomiting, chest pain, shortness of breath, abdominal pain, rectal bleeding. Reports having a clear stool. Plan for diagnostic EGD and colonoscopy today. Vital signs are stable. Labs: Hemoglobin at 12.1 from 10.8 yesterday. Platelets of 198,000. INR of 0.94. Chemistries from yesterday are unrevealing. ASSESSMENT AND PLAN: Mr. Ren Dial is a 63-year-old gentleman, who presented with altered mental status and fall, as well as hematochezia. His mental status has improved significantly. The patient was prepped for diagnostic EGD and colonoscopy today. Further recommendations postprocedure. cc: Ej Wiggins MD
--- NOTE | 2018-09-28 13:01 | OPERATIVE NOTE ---
PROCEDURE DATE: 09/28/2018 SURGEON: Dawn Banks MD. PROCEDURES: 1. Colonoscopy. 2. Esophagogastroduodenoscopy. PREOPERATIVE DIAGNOSIS: Gastrointestinal bleed. POSTOPERATIVE DIAGNOSES: 1. Hiatal hernia with a few small Julio lesions. No signs of bleeding. 2. Internal hemorrhoids, grade 2. 3. Diverticulosis. 4. No evidence of active bleeding. DESCRIPTION OF PROCEDURE: After informed consent and adequate intravenous sedation, the scope introduced through the esophagus which was normal. The patient has a moderate-sized hiatal hernia and has Julio lesions. There is no signs of any bleeding. Stomach itself is normal. Duodenum is normal. At this point, again, the Julio lesions were identified. The scope is withdrawn. At this point, rectal exam was done which was normal. Endoscope introduced all the way into the cecum. Entire colon is carefully examined. There is diverticulosis mostly in the left colon. Patient also has internal hemorrhoids, but there was no signs of any active bleeding anywhere, except the hemorrhoids do look friable. This is probably the source of bleeding. His macrocytic anemia may be multifactorial. cc: MD Ej Gomez MD
[2018-09-28] MEDS ORDERED: APRESOLINE IV PRN (19:26)
[2018-09-28] MEDS ORDERED: PAMELOR PO SCH ×2 (21:00)
[2018-09-28] MEDS: COZAAR PO SCH (21:51)
--- NOTE | 2018-09-28 23:57 | PROGRESS NOTE ---
DATE: 09/28/2018 SUBJECTIVE: The patient is doing better. Has GI bleeding. Waiting for esophagogastroduodenoscopy and colonoscopy by Dr. Banks. EXAMINATION: Temperature is 98, vitals are little bit high, blood pressure is running high. Chest: Clear. Heart: Sounds are regular. Belly: Is soft, nontender. Good bowel sounds. No neurological deficits. ASSESSMENT AND PLAN: Gastrointestinal bleeding. Waiting for esophagogastroduodenoscopy and colon, based on that, further recommendations will be followed. We will resume the home medications, after the EGD and colon further recommendations will be followed. LEVEL OF DOCUMENTATION: 25 minutes. cc: Ej Wiggins MD
[2018-09-29] MEDS: MORPHINE IV PRN ×2 (01:07→04:21)
[2018-09-29] MEDS: NS 1,000 ML IV SCH (04:20)
[2018-09-29 07:49] VITALS: BP 152/104
[2018-09-29] MEDS ORDERED: CYMBALTA PO SCH (09:00)
[2018-09-29] MEDS ORDERED: NEURONTIN PO SCH (09:00)
[2018-09-29] MEDS: SODIUM CHLORIDE 0.9% INJ SCH (09:37)
[2018-09-29] MEDS: PROTONIX IV SCH (09:37)
[2018-09-29] MEDS: COZAAR PO SCH (09:38)
--- NOTE | 2018-09-29 11:39 | GASTROENTEROLOGY PROGRESS NOTE ---
DATE: 09/29/2018 SUBJECTIVE: The patient underwent diagnostic EGD and colonoscopy yesterday, which revealed a moderate-sized hiatal hernia with Julio ulcers without any signs of active bleeding or ulcers in the stomach or duodenum. Colonoscopy revealed internal hemorrhoids as well as diverticulosis. Procedure was uncomplicated. No acute overnight events. The patient is afebrile. The patient denies any complaints this morning. Tolerating p.o. diet without any recurrent rectal bleeding. OBJECTIVE: Vital Signs: Temperature 98.1 degrees, heart rate of 90, respiratory rate 16, blood pressure 152/104, O2 saturation 100% on room air. LABORATORY: No recent laboratories. ASSESSMENT AND PLAN: 1. Mr. Dial is a 63-year-old gentleman who was admitted with altered mental status and syncopal episode in the setting of hematochezia. EGD and colonoscopy done yesterday reveals some Julio ulcers, internal hemorrhoids and diverticulosis. It was thought that his rectal bleeding was likely secondary to hemorrhoids given friability on endoscopic visualization. Other etiologies include diverticular bleeding. He is currently stable and ready for discharge. We recommend follow-up in our clinic within 2 to 4 weeks. He should continue PPI therapy once daily. 2. Altered mental status, resolved. 3. Anemia. Last hemoglobin checked on September 27 was 12.1. cc: Ej Wiggins MD
--- NOTE | 2018-09-30 08:57 | DISCHARGE SUMMARY ---
ADMISSION DATE: 09/26/2018 DISCHARGE DATE: 09/29/2018 DISCHARGING DIAGNOSIS: Altered mental status due to metabolic encephalopathy. SECONDARY DIAGNOSES: 1. Gastrointestinal bleeding due to internal hemorrhoids. 2. Hiatal hernia with a few small Julio lesions. 3. Diverticulosis. 4. History of alcohol abuse. Currently sober for the last 15 years. 5. Chronic pain. 6. Anxiety and depression. 7. Hypertension. 8. Osteoarthritis. CONSULTS: Dr. Banks. PROCEDURES: EGD and colonoscopy. Findings: 1) Hiatal hernia with a few Julio lesions. 2) Internal hemorrhoids and diverticulosis. BRIEF HISTORY: Please see the H and P that was done by hospitalist. In brief, he is a 63-year- old white gentleman with the above problems, who came in with altered mental status, confusion, frequent falls. According to the family, he is not drinking anymore. Urine toxicology screen positive for opiates. Initial workup was negative in the ER. He is also bleeding per rectum. As a result, hospital admission was warranted. HOSPITAL COURSE: There were no signs of active GI bleeding noted. EGD done by Dr. Banks. Findings were reassuring. He was given Seroquel for hallucinations at nighttime. I discontinued nortriptyline. LABORATORY DATA: CBC: White cell count 8.1, hematocrit 37, platelets 198,000. SMA-7 was normal. LFTs were normal. Urinalysis is clear. Urine toxicology screen is negative, except opiates positive. IMAGIN. Chest x-ray, right rib x-ray, knee x-rays, and right hip x-ray were negative for acute bony injury. 2. CT head is negative. 3. CT scan of the abdomen and pelvis: Advanced diverticulosis, unremarkable CT. DISCHARGE INSTRUCTIONS: Gabapentin 1200 t.i.d., losartan 50 p.o. b.i.d., Mobic 15 as needed, duloxetine 60 daily, Seroquel 25 mg at bedtime. Follow up in my office next week. cc: Ej Wiggins MD
== END 2018-09-29 10:16 | disposition home or self-care (01) | DRG 393 ==
LOC: SUPCPDRO → ED 13:24 → 4N 23:32 → SUATTDRO 23:32
PROVIDERS: ADMIT Internal Medicine; ATTEND Internal Medicine
CPT/HCPCS: 70450; 71020; 71046; 71100; 73502; 73562; 74177; 80048; 80053; 80101; 80301; 80307; 80324; 80345; 80346; 80353; 80358; 80361; 80365; 81001; 82948; 83992; 84443; 85025; 85610; 85730; 86850; 86900; 86901; 90732; 93005; 96374; 96375; 96376; 99285; A9270; C9113; G0431; G0434; G0479; G0480; J1200; J2270; J2405; J3010; J7030; Q9967; S0164; XXXXX